=== PATIENT | male | born 1980 | race African-American/Black ===

== ENCOUNTER → 2022-03-14 | Outpatient (CLI) | payer BC | LOC: RAD 16:09 | PROVIDERS: ATTEND Internal Medicine | DX: M54.50 Low back pain, unspecified (principal) | CPT/HCPCS: 72110 ==

== ENCOUNTER → 2023-03-13 | Outpatient (REF) | payer BC | LOC: RAD 15:39 | PROVIDERS: ATTEND Internal Medicine | DX: S29.9XXA Unspecified injury of thorax, initial encounter (principal) | CPT/HCPCS: 71101 ==